=== PATIENT | male | born 1940 | race Caucasian/White ===

== ENCOUNTER 2023-01-07 13:46 | Inpatient (IN) | payer BC ==
[~2023-01-07] VITALS: Ht 193 cm; Wt 134.7 kg
[2023-01-07 14:47] LABS: CALCIUM, SERUM 8.9 mg/dL (8.5-10.1); CARBON DIOXIDE 22 mmol/L (21-32); CHLORIDE 105 mmol/L (98-107); GLUCOSE 114 mg/dL (74-106); SODIUM SERUM 141 mmol/L (136-145); UREA NITROGEN, BLOOD 20 mg/dL (7-18)
[2023-01-07 14:53] LABS: ALANINE AMINOTRANSFERASE 20 U/L (12-78); ALBUMIN 3.3 g/dL (3.4-5.0); ALKALINE PHOSPHATASE 91 U/L (46-116); ASPARTATE AMINOTRANSFERASE 14 U/L (15-37); BILIRUBIN,DIRECT 0.2 mg/dL (0.0-0.2); BILIRUBIN,TOTAL 0.7 mg/dL (0.2-1.0); TOTAL PROTEIN, SERUM 7.3 g/dL (6.4-8.2)
[2023-01-07 14:56] LABS: BASOPHILS % (AUTO) 0.3 % (0.0-2.0); EOSINOPHILS # (AUTO) 0.1 K/uL (0.0-0.7); EOSINOPHILS % (AUTO) 0.4 % (0.0-6.0); HEMATOCRIT 43 % (39-51); HEMOGLOBIN 13.2 g/dL (13.5-17.5); LYMPHOCYTES # (AUTO) 1.2 K/uL (0.8-4.8); LYMPHOCYTES % (AUTO) 9.3 % (20.0-44.0); MEAN CORPUSCULAR HEMOGLOBIN 24 PG (26.0-33.0); MEAN CORPUSCULAR HGB CONC 31 g/dl (31.0-36.0); MEAN CORPUSCULAR VOLUME 77 fL (80-96); MONOCYTES # (AUTO) 1.1 K/uL (0.1-1.30); MONOCYTES % (AUTO) 8.6 % (2.0-12.0); NEUTROPHILS # (AUTO) 10.3 K/uL (1.8-8.9); NEUTROPHILS % (AUTO) 81.4 % (43.0-81.0); PLATELET COUNT (AUTO) 326 K/uL (150-450); RED BLOOD CELL COUNT(AUTO) 5.52 MIL/uL (4.5-6.0); RED CELL DISTRIBUTION WIDTH 20.1 % (11.5-15.0); WHITE BLOOD COUNT (AUTO) 12.7 K/uL (4.3-11.0)
[2023-01-07 15:26] LABS: LACTIC ACID 2.2 mmol/L (0.4-2.0)
[2023-01-07 15:29] LABS: INR 1.24 (0.91-1.10); PARTIAL THROMBOPLASTIN TIME 49.9 SEC (24.3-34.3)
[2023-01-07] MEDS ORDERED: IV NS 0.9% 1,000 ML BAG IV ONE (15:30)
[2023-01-07] MEDS ORDERED: DAPA10TA PO (15:48)
[2023-01-07] MEDS ORDERED: DOCU100C58 PO (15:48)
[2023-01-07] MEDS ORDERED: LOSA100T31 PO (15:48)
[2023-01-07] MEDS ORDERED: CHOL100043 PO (15:48)
[2023-01-07] MEDS ORDERED: METO25TA20 PO (15:48)
[2023-01-07] MEDS ORDERED: FURO40TA5 PO (15:48)
[2023-01-07] MEDS ORDERED: ASPI-1169 PO (15:48)
[2023-01-07] MEDS ORDERED: APIX5TAB PO (15:48)
[2023-01-07] MEDS ORDERED: FINA5TAB11 PO (15:48)
[2023-01-07] MEDS ORDERED: UBID100C13 PO (15:48)
[2023-01-07] MEDS ORDERED: ROSU10TA29 PO (15:48)
[2023-01-07] MEDS ORDERED: DIGO125T20 PO (15:48)
[2023-01-07] MEDS ORDERED: VITA1TAB56 PO (15:48)
[2023-01-07] MEDS ORDERED: MULT-447 PO (15:48)
[2023-01-07] MEDS ORDERED: MAGN400T26 PO (15:48)
[2023-01-07] MEDS ORDERED: SEMA0.25 SQ (15:48)
[2023-01-07] MEDS ORDERED: Z GUARD REMEDY 4 OZ OINT TP PRN (16:30)
[2023-01-07] MEDS ORDERED: ACETAMINOPHEN 325 MG TABLET PO PRN (16:30)
[2023-01-07] MEDS ORDERED: MAGNESIUM HYDROXIDE 30 ML UDC PO PRN (16:30)
[2023-01-07] MEDS ORDERED: ONDANSETRON HCL/PF 4 MG/2 ML VIAL IVP PRN (16:30)
[2023-01-07] MEDS ORDERED: ATORVASTATIN 40 MG TABLET PO SCH (18:00)
[2023-01-07] MEDS ORDERED: MAGNESIUM OXIDE 400 MG TABLET PO SCH ×2 (18:00)
[2023-01-07 18:34] VITALS: BP 114/80; TEMP 98.6; O2SAT 96
[2023-01-07] MEDS: DOCUSATE SODIUM 100 MG CAPSULE PO SCH (18:58)
[2023-01-07] MEDS: APIXABAN 5 MG TABLET PO SCH (18:59)
[2023-01-07 20:00] VITALS: BP 129/66; TEMP 98.8; O2SAT 96
[2023-01-07] MEDS: METOPROLOL TARTRATE 50 MG TABLET PO SCH (20:26)
[2023-01-08] VITALS: BP 135/90; TEMP 98.2; O2SAT 97
[2023-01-08 05:00] VITALS: BP 115/71; TEMP 97.7; O2SAT 93
[2023-01-08 07:01] LABS: BASOPHILS # (AUTO) 0.1 K/uL (0.0-0.2); BASOPHILS % (AUTO) 0.4 % (0.0-2.0); EOSINOPHILS # (AUTO) 0.2 K/uL (0.0-0.7); EOSINOPHILS % (AUTO) 1.8 % (0.0-6.0); HEMATOCRIT 41 % (39-51); HEMOGLOBIN 12.7 g/dL (13.5-17.5); LYMPHOCYTES % (AUTO) 24.8 % (20.0-44.0); MEAN CORPUSCULAR HEMOGLOBIN 24 PG (26.0-33.0); MEAN CORPUSCULAR HGB CONC 31 g/dl (31.0-36.0); MEAN CORPUSCULAR VOLUME 79 fL (80-96); MONOCYTES % (AUTO) 8.2 % (2.0-12.0); NEUTROPHILS # (AUTO) 7.8 K/uL (1.8-8.9); NEUTROPHILS % (AUTO) 64.8 % (43.0-81.0); PLATELET COUNT (AUTO) 296 K/uL (150-450); RED BLOOD CELL COUNT(AUTO) 5.23 MIL/uL (4.5-6.0); RED CELL DISTRIBUTION WIDTH 20.3 % (11.5-15.0)
[2023-01-08 07:24] LABS: ALANINE AMINOTRANSFERASE 18 U/L (12-78); ALKALINE PHOSPHATASE 84 U/L (46-116); ASPARTATE AMINOTRANSFERASE 20 U/L (15-37); BILIRUBIN,TOTAL 0.6 mg/dL (0.2-1.0); CALCIUM, SERUM 8.6 mg/dL (8.5-10.1); CARBON DIOXIDE 23 mmol/L (21-32); CHLORIDE 104 mmol/L (98-107); CREATININE 0.7 mg/dL (0.6-1.3); GLUCOSE 102 mg/dL (74-106); MAGNESIUM 2.8 mg/dL (1.8-2.4); PHOSPHORUS 3.6 mg/dL (2.5-4.9); POTASSIUM 4.2 mmol/L (3.5-5.1); SODIUM SERUM 137 mmol/L (136-145); TOTAL PROTEIN, SERUM 6.9 g/dL (6.4-8.2); UREA NITROGEN, BLOOD 20 mg/dL (7-18)
[2023-01-08 07:35] LABS: THYROID STIMULATING HORMONE 1.187 uIU/mL (0.358-3.74)
[2023-01-08 08:27] VITALS: BP 111/79; TEMP 98; O2SAT 98
[2023-01-08] MEDS: METOPROLOL TARTRATE 50 MG TABLET PO SCH (08:44)
[2023-01-08 08:45] VITALS: BP 111/79
[2023-01-08] MEDS: DOCUSATE SODIUM 100 MG CAPSULE PO SCH (08:45)
[2023-01-08] MEDS: APIXABAN 5 MG TABLET PO SCH (08:45)
[2023-01-08] MEDS ORDERED: FUROSEMIDE 40 MG TABLET PO SCH (09:00)
[2023-01-08] MEDS ORDERED: FINASTERIDE (5 MG) 5 MG TABLET PO SCH (09:00)
[2023-01-08] MEDS ORDERED: DIGOXIN 0.125 MG TABLET PO SCH (09:00)
[2023-01-08] MEDS ORDERED: DAPAGLIFLOZIN PROPANEDIOL 5 MG TABLET PO SCH (09:00)
[2023-01-08] MEDS ORDERED: MULTIVIT W/MINERALS 1 TAB TABLET PO SCH (09:00)
[2023-01-08] MEDS ORDERED: VITAMIN B COMP W-C 1 TAB TABLET PO SCH (09:00)
[2023-01-08] MEDS ORDERED: CHOLECALCIFEROL 1,000 UNIT TABLET (VIT D3) PO SCH (09:00)
[2023-01-08] MEDS ORDERED: ASPIRIN 81 MG TAB.CHEW PO SCH (09:00)
[2023-01-08] MEDS ORDERED: LOSARTAN POTASSIUM 50 MG TABLET PO SCH (09:00)
== END 2023-01-08 11:00 | disposition home or self-care (01) | DRG 315 ==
LOC: ER 13:50 → TELE 17:23
PROVIDERS: ADMIT Internal Medicine; ATTEND Internal Medicine
DX: I95.9 Hypotension, unspecified (principal); D68.69 Other thrombophilia; E87.20 Acidosis, unspecified; I48.20 Chronic atrial fibrillation, unspecified; I50.32 Chronic diastolic (congestive) heart failure; R55 Syncope and collapse; I48.91 Unspecified atrial fibrillation; I11.0 Hypertensive heart disease with heart failure; I49.3 Ventricular premature depolarization; M19.90 Unspecified osteoarthritis, unspecified site; Z79.01 Long term (current) use of anticoagulants; Z96.652 Presence of left artificial knee joint; W10.1XXA Fall (on)(from) sidewalk curb, initial encounter; Y93.01 Activity, walking, marching and hiking; Y92.89 Other specified places as the place of occurrence of the external cause
CPT/HCPCS: 36415; 70450-TC; 71045-TC; 73564-TC; 80048-TC; 80053-TC; 80076-TC; 80162-TC; 83605-TC; 83735-TC; 83880; 84100-TC; 84443-TC; 84484-TC; 85025-TC; 85730-TC; 87040-TC; 93307-TC; 97112-TC; 97116-TC; 97530-TC; A4223; G0378; J7030; J7040